=== PATIENT | male | born 1950 | race Caucasian/White ===

== ENCOUNTER 2017-03-24 11:52 | Day surgery (SDC) | payer BC ==
[~2017-03-24] VITALS: Ht 180.3 cm; Wt 95.8 kg
[~2017-03-24 11:52] MED LIST: ASPIRIN 32325 MG/TA1 PO; B-12 250 MCG PO; FLAX OIL1000 MG PO; GLUCOPHAGE XR500 M1 PO; LANTUS SOLOS100 U/ML SQ; LOTENSIN5 MG PO; METFORMIN1000 MG PO; NORCO 325 MG-51 TAB PO; VITAMIN C500 MG PO; ZETIA 10MG TAB10 MG PO; ZOFRAN ODT4 MG PO
[2017-03-24 12:21] VITALS: BP 146/90; PULSE 93; TEMP 98.2
[2017-03-24] MEDS ORDERED: LOTENSIN20 MG PO (12:54)
[2017-03-24 13:45] VITALS: BP 119/91; PULSE 88; TEMP 98.2
[2017-03-24 14:00] VITALS: BP 120/82; PULSE 86
[2017-03-24 15:48] VITALS: BP 123/75; PULSE 82
== END 2017-03-24 14:25 | disposition home or self-care (01) ==
LOC: SDCO 11:52
DX: D12.0 Benign neoplasm of cecum (principal); K64.0 First degree hemorrhoids; E11.9 Type 2 diabetes mellitus without complications; I10 Essential (primary) hypertension; E78.00 Pure hypercholesterolemia, unspecified; Z85.828 Personal history of other malignant neoplasm of skin
CPT/HCPCS: OP; J2250; J3010; J7042

== ENCOUNTER 2019-06-19 12:35 | Emergency (ER) | payer BC ==
[~2019-06-19] VITALS: Ht 180.3 cm; Wt 93.2 kg
[~2019-06-19 12:35] MED LIST changes: +LOTENSIN20 MG PO
[2019-06-19 12:42] VITALS: TEMP 98.1
[2019-06-19] MEDS ORDERED: IBU400 MG PO (12:55)
[2019-06-19 15:10] LABS: CREATININE, serum 1.26 (0.66-1.25); POTASSIUM 5.2 mmol/L (3.4-5.0)
[2019-06-19] MEDS ORDERED: NORCO 325 MG-51 TAB PO (16:15)
[2019-06-19 16:40] VITALS: BP 145/94; PULSE 96
== END 2019-06-19 16:40 | disposition home or self-care (01) ==
LOC: COL.ER 12:35
PROVIDERS: Physician Assistant
DX: S22.31XA Fracture of one rib, right side, initial encounter for closed fracture (principal); E11.9 Type 2 diabetes mellitus without complications; Z90.49 Acquired absence of other specified parts of digestive tract; Z87.891 Personal history of nicotine dependence; Z79.4 Long term (current) use of insulin; X50.0XXA Overexertion from strenuous movement or load, initial encounter
CPT/HCPCS: A9284; J7030; Q9967

== ENCOUNTER 2023-08-18 02:39 | Emergency (ER) | payer MEDICARE ==
[~2023-08-18] VITALS: Ht 180.3 cm; Wt 90.0 kg
[~2023-08-18 02:39] MED LIST changes: +IBU400 MG PO
[2023-08-18 02:46] VITALS: TEMP 97.6
[2023-08-18 03:13] VITALS: BP 156/94; PULSE 68
== END 2023-08-18 03:23 | disposition home or self-care (01) ==
LOC: COL.ER 02:39
DX: K40.90 Unilateral inguinal hernia, without obstruction or gangrene, not specified as recurrent (principal); Z98.890 Other specified postprocedural states